=== PATIENT | male | born 1995 | race Caucasian/White ===

== ENCOUNTER 2017-04-05 20:43 | Emergency (ER) | payer OTHER ==
[2017-04-05 20:49] VITALS: BP 167/101
--- NOTE | 2017-04-05 21:43 | ED Physician Documentation ---
PD HPI UPPER EXT INJURY - Stated complaint Stated Complaint: ARM PX - Chief complaint Chief Complaint: Ext Problem - History obtained from History obtained from: Patient - History of Present Illness Location: Right, Elbow Type of injury: Other (no known injury) Timing - onset: How many days ago (1) Timing - duration: Days (1) Timing - details: Gradual onset Pain level max: 5 Pain level now: 3 Improved by: Rest Worsened by: Moving, Palpating Associated symptoms: Swelling. No: Weakness, Numbness, Tingling, Discolored Contributing factors: No: Anticoagulated, Prior ortho surgery Similar symptoms before: Has not had sx before Recently seen: Not recently seen - Additonal information Additional information: pt is right handed Review of Systems Musculoskeletal: denies: Neck pain, Back pain Neurologic: denies: Focal weakness, Numbness PD PAST MEDICAL HISTORY - Past Medical History Past Medical History: No - Past Surgical History Past Surgical History: No - Present Medications Home Medications: Ambulatory Orders Medication Instructions Recorded Confirmed Ibuprofen [Motrin] 800 mg PO Q8H PRN #30 tablet 04/05/17 - Allergies Allergies/Adverse Reactions: Allergies Allergy/AdvReac Type Severity Reaction Status Date / Time No Known Drug Allergies Allergy Verified 04/05/17 20:49 - Social History Does the pt smoke?: Yes Smoking Status: Current some day smoker Does the pt drink ETOH?: No Does the pt have substance abuse?: No - Immunizations Immunizations are current?: Yes PD ED PE NORMAL - Vitals Vital signs reviewed: Yes - General General: Alert and oriented X 3, No acute distress - Derm Derm: Warm and dry - Extremities Extremities: Other (FROM of the R elbow, but pain with pronation and supination. TTP over the radial head. o/w normal exam. NVI.) - Neuro Neuro: Alert and oriented X 3 Results - Vitals Vitals: Vital Signs - 24 hr 04/05/17 20:47 Temperature 36.0 C L Heart Rate 83 Respiratory 18 Rate Blood Pressure 167/101 H O2 Saturation 100 Oxygen O2 Source Room air - Rads (name of study) r elbow xray Radiology: Prelim report reviewed, EMP read contemporaneously, See rad report ( normal) PD MEDICAL DECISION MAKING - ED course Complexity details: reviewed results, re-evaluated patient, considered differential, d/w patient ED course: Patient is a 21-year-old male who presents to the emergency department with right elbow pain. He was tender over the radial head, therefore x-ray performed , no acute fractures. Will treat is bursitis. We will have him follow-up with his PCP for further evaluation and care. Sling was provided as this was more comfortable for him. No evidence of cellulitis or septic joint. Patient counseled regarding signs and symptoms for which I believe and urgent re- evaluation would be necessary. Patient with good understanding of and agreement to plan and is comfortable going home at this time This document was made in part using voice recognition software. While efforts are made to proofread this document, sound alike and grammatical errors may occur. Departure - Departure Disposition: Home, Self Care Clinical Impression: Bursitis Qualifiers: Bursitis location: elbow Elbow bursitis location: radiohumeral bursitis Laterality: right Qualified Code(s): M70.31 - Other bursitis of elbow, right elbow Condition: Good Instructions: ED Bursitis Follow-Up: your,doctor in 1 week [Other] Prescriptions: Ibuprofen [Motrin] 800 mg PO Q8H PRN #30 tablet PRN Reason: PAIN &/OR FEVER Comments: Return if you worsen. Your xrays are normal today and this should improve over the next few days. Discharge Date/Time: 04/05/17 21:52
--- NOTE | 2017-04-05 21:54 | XRAY Preliminary Report ---
Exam: XR ELBOW 3 VIEW RT IMPRESSION: Normal elbow radiography. [facility] SITE ID: [id number]
--- NOTE | 2017-04-05 21:54 | XRAY Report ---
EXAM: RIGHT ELBOW RADIOGRAPHY EXAM DATE: 04/05/2017 09:44 PM. CLINICAL HISTORY: Pain. COMPARISON: None. TECHNIQUE: 3 views. FINDINGS: Bones: Normal. No fractures or bone lesions. Joints: Normal. No effusion. No subluxation. Soft Tissues: Unremarkable. IMPRESSION: Normal elbow radiography. [facility] Referring Provider Line: [phone] SITE ID: [id number]
== END 2017-04-05 21:52 | disposition home or self-care (01) ==
LOC: ED 20:43
DX: M70.31 Other bursitis of elbow, right elbow (principal); F17.200 Nicotine dependence, unspecified, uncomplicated
CPT/HCPCS: 99283

== ENCOUNTER 2018-03-05 12:19 | Emergency (ER) | payer OTHER ==
[2018-03-05] MEDS ORDERED: NAPROXEN 250 MG TABLET PO STA (13:10)
[2018-03-05] MEDS ORDERED: DEXAMETHASONE 10 MG/ML VIAL PO STA (13:10)
--- NOTE | 2018-03-05 13:12 | ED Physician Documentation ---
History of Present Illness - Stated complaint Stated Complaint: FEVER/THROAT PX - Chief complaint Chief Complaint: Heent - Additonal information Additional information: 22-year-old male presents the emergency department with several days of sore throat, body aches and fever. The patient is also experienced some nasal congestion. The patient was seen and had a negative strep test. The patient reports ongoing symptoms. No triggering factors. Symptoms are described as moderate. No other associated symptoms Review of Systems Constitutional: reports: Fever, Chills Eyes: denies: Discharge Ears: denies: Ear pain Nose: denies: Rhinorrhea / runny nose, Congestion Throat: reports: Sore throat Cardiac: denies: Chest pain / pressure Respiratory: denies: Cough GI: denies: Abdominal Pain Musculoskeletal: denies: Neck pain PD PAST MEDICAL HISTORY - Past Medical History Past Medical History: No - Past Surgical History Past Surgical History: No - Present Medications Home Medications: Ambulatory Orders Medication Instructions Recorded Confirmed Ibuprofen [Motrin] 800 mg PO Q8H PRN #30 tablet 04/05/17 - Allergies Allergies/Adverse Reactions: Allergies Allergy/AdvReac Type Severity Reaction Status Date / Time No Known Drug Allergies Allergy Verified 03/05/18 12:40 - Social History Does the pt smoke?: No Smoking Status: Never smoker Does the pt drink ETOH?: Yes Does the pt have substance abuse?: No - Immunizations Immunizations are current?: Yes PD ED PE NORMAL - General General: Alert and oriented X 3, No acute distress - HEENT HEENT: Atraumatic, PERRL, EOMI, Ears normal, Moist mucous membranes - Neck Neck: Supple, no meningeal sign, No adenopathy - Cardiac Cardiac: RRR - Respiratory Respiratory: No respiratory distress, Clear bilaterally - Neuro Neuro: Alert and oriented X 3, Normal speech - Psych Psych: Normal affect PD ED PE EXPANDED - HEENT HEENT: Moist mucous membranes, Pharyngeal erythema, Swollen tonsils, Tonsillar exudate, Dentition normal, Other. No: Soft palate petecchiae, [employer] Results - Vitals Vitals: Vital Signs - 24 hr 03/05/18 12:38 Temperature 36.9 C Heart Rate 92 Respiratory 16 Rate Blood Pressure 129/72 O2 Saturation 100 Oxygen O2 Source Room air - Labs Labs: Laboratory Tests 03/05/18 03/05/18 12:41 12:41 Influenza A (Rapid) Negative Influenza B (Rapid) Negative Group A Strep Rapid Negative PD MEDICAL DECISION MAKING - ED course ED course: On physical exam there is no evidence of peritonsillar abscess or retropharyngeal abscess. The patient most likely has a viral tonsillitis. A culture was sent. Presently the patient appears appropriate for discharge and ongoing outpatient management I discussed with him the findings and plan and He understands and agrees to the plan. I discussed warning signs and recommended returning to the emergency department for any worsening or any concerns. Departure - Departure Disposition: 01 Home, Self Care Clinical Impression: Acute tonsillitis Qualifiers: Pharyngitis/tonsillitis etiology: unspecified etiology Qualified Code(s): J03.90 - Acute tonsillitis, unspecified Condition: Good Instructions: ED Tonsillitis Follow-Up: SOPHIA Gomez [Provider Group] - Within 1 week Comments: Please return to the emergency department for worsening symptoms or any concerns
[2018-03-05] MEDS ORDERED: CHERRY SYRUP 10 ML UDC PO ONE (13:16)
[2018-03-05 13:30] VITALS: BP 133/77
== END 2018-03-05 13:29 | disposition home or self-care (01) ==
LOC: ED 12:19
DX: J03.90 Acute tonsillitis, unspecified (principal)
CPT/HCPCS: 87070; 87275; 87276; 87430; 99283; A9270